=== PATIENT | female | born 1960 | race Caucasian/White ===

== ENCOUNTER 2018-06-01 12:29 | Emergency (ER) | payer OTHER ==
[~2018-06-01] VITALS: Ht 170.2 cm; Wt 85.5 kg
[2018-06-01] MEDS ORDERED: PREMPRO 0.625/21 TA1 PO (12:36)
[2018-06-01] MEDS ORDERED: NORCO 325 MG-51 TA1 PO (13:39)
[2018-06-01] MEDS ORDERED: KNEE STABILIZE1 EACH MC (14:01)
[2018-06-01 14:25] VITALS: BP 129/58
== END 2018-06-01 14:11 | disposition home or self-care (01) ==
LOC: ED 12:29
DX: S83.92XA Sprain of unspecified site of left knee, initial encounter (principal); W01.0XXA Fall on same level from slipping, tripping and stumbling without subsequent striking against object, initial encounter